=== PATIENT | male | born 1975 | race Caucasian/White ===

== ENCOUNTER 2022-03-07 12:08 | Day surgery (SDC) | payer OTHER ==
[~2022-03-07 12:08] MED LIST: LACTATED RINGERS 1,000 ML IV SCH; LIDOCAINE 1% (10MG/ML) FOR IV START INTRADERMA PRN
[2022-03-07 12:56] VITALS: TEMP 98.5
[2022-03-07] MEDS ORDERED: PROPOFOL 10 MG/ML 20 ML VIAL IV ONE (14:45)
--- NOTE | 2022-03-07 14:47 | P.GSHP ---
History of Present Illness H&P Date: 03/07/22 Chief Complaint: Rectal bleeding This a 46-year-old male with history of rectal bleeding. Patient rents today for colonoscopy. Past Medical History Additional Past Medical History / Comment(s): intermittent rectal bleeding with ? hemoroids for the last 3 years, had wisdom teeth pulled as well as 1 in the upper front. Never have had anesthetic. had sciatica 3 yrs History of Any Multi-Drug Resistant Organisms: None Reported Past Surgical History: No Surgical Hx Reported Past Psychological History: No Psychological Hx Reported Smoking Status: Current every day smoker Past Alcohol Use History: Occasional Additional Past Alcohol Use History / Comment(s): uses it on the weekends- 6 pk a weekend Past Drug Use History: Marijuana Additional Drug Use History / Comment(s): smokes weed every day-a gram a day - Past Family History Father Family Medical History: Cancer Additional Family Medical History / Comment(s): dad is currently being treated for colon cancer (pt thinks) Mother Additional Family Medical History / Comment(s): mom has a leaky heart valve Medications and Allergies Home Medications Medication Instructions Recorded Confirmed Type No Known Home Medications 03/07/22 03/07/22 History Allergies Allergy/AdvReac Type Severity Reaction Status Date / Time No Known Allergies Allergy Verified 03/07/22 12:38 Surgical - Exam Vital Signs Temp Pulse Resp BP Pulse Ox 98.5 F 78 16 141/81 99 03/07/22 12:54 03/07/22 12:54 03/07/22 12:54 03/07/22 12:54 03/07/22 12:54 - General well developed, well nourished, no distress - Eyes PERRL - ENT normal pinna - Neck no masses - Respiratory normal expansion - Cardiovascular Rhythm: regular - Abdomen Abdomen: soft, non tender Assessment and Plan Assessment: History of rectal bleeding. We'll perform colonoscopy.
--- NOTE | 2022-03-07 15:03 | P.OP ---
Date of Procedure: 03/07/22 Preoperative Diagnosis: Rectal bleeding Postoperative Diagnosis: Diverticulosis Internal and external hemorrhoids Procedure(s) Performed: Colonoscopy Anesthesia: MAC Surgeon: Etienne Pacheco Pathology: none sent Condition: stable Disposition: PACU Description of Procedure: The patient's placed on the endoscopy table in the lateral position. He received IV sedation. Digital rectal exam was performed. This revealed internal and external hemorrhoids. The flexible colonoscope was then placed patient anus and passed throughout the entire colon. The ileocecal valve was visually is. The cecum, ascending and transverse colon appeared normal. In the descending and sigmoid colon there is mild diverticulosis. The scope was then brought back the rectum and this appeared normal. Scope withdrawn through the anus and internal and external hemorrhoids are noted. Scope withdrawn for patient. There is no evidence of any rectal bleeding. His presumed patient may have bleeding from hemorrhoids.
[2022-03-07 15:30] VITALS: BP 143/89; PULSE 62; RESP 16
== END 2022-03-07 15:42 | disposition home or self-care (01) ==
LOC: ORWHC2ENDO 12:08
PROVIDERS: ATTEND Surgery
DX: K57.30 Diverticulosis of large intestine without perforation or abscess without bleeding (principal); K64.8 Other hemorrhoids; K64.4 Residual hemorrhoidal skin tags; Z80.0 Family history of malignant neoplasm of digestive organs; Z82.49 Family history of ischemic heart disease and other diseases of the circulatory system
CPT/HCPCS: 45378; J2704

== ENCOUNTER 2022-03-28 07:12 | Day surgery (SDC) | payer OTHER ==
[~2022-03-28 07:12] MED LIST changes: +ACETAMINOPHEN TAB 500 MG TAB PO PRN; +HEPARIN SODIUM,PORCINE/PF 5,000 UNIT/0.5 ML SYRINGE SQ PRN; -LACTATED RINGERS 1,000 ML IV SCH; -LIDOCAINE 1% (10MG/ML) FOR IV START INTRADERMA PRN; +Pre Op ABX Message 1 EACH MISC MISCELLANE ONE
[2022-03-28] MEDS ORDERED: ONDANSETRON 4 MG/2 ML VIAL IVP ONE (07:28)
[2022-03-28] MEDS ORDERED: LACTATED RINGERS 1,000 ML IV SCH (07:28)
[2022-03-28] MEDS ORDERED: HYDROmorphone 0.5 MG/0.5 ML SYRINGE IVP PRN (07:28)
[2022-03-28] MEDS ORDERED: DEXAMETHASONE SOD PHOSPHATE 4 MG/ML 1 ML VIAL IV ONE (07:28)
[2022-03-28] MEDS ORDERED: MIDAZOLAM 2 MG/2 ML VIAL IVP ONE (08:14)
--- NOTE | 2022-03-28 08:33 | P.GSHP ---
History of Present Illness H&P Date: 03/28/22 Chief Complaint: Internal and external hemorrhoids This 46-year-old male who presents today for hemorrhoidectomy. Patient's clearance of pain and bleeding and itching from hemorrhoids. Past Medical History Additional Past Medical History / Comment(s): intermittent rectal bleeding with ? hemoroids for the last 3 years, had wisdom teeth pulled as well as 1 in the upper front. Never have had anesthetic. had sciatica 3 yrs History of Any Multi-Drug Resistant Organisms: None Reported Past Surgical History: No Surgical Hx Reported Past Psychological History: No Psychological Hx Reported Smoking Status: Current every day smoker Past Alcohol Use History: Occasional Additional Past Alcohol Use History / Comment(s): uses it on the weekends- 6 pk a weekend Past Drug Use History: Marijuana Additional Drug Use History / Comment(s): smokes weed every day-a gram a day - Past Family History Father Family Medical History: Cancer Additional Family Medical History / Comment(s): dad is currently being treated for colon cancer (pt thinks) Mother Additional Family Medical History / Comment(s): mom has a leaky heart valve Medications and Allergies Home Medications Medication Instructions Recorded Confirmed Type No Known Home Medications 03/07/22 03/28/22 History Allergies Allergy/AdvReac Type Severity Reaction Status Date / Time No Known Allergies Allergy Verified 03/28/22 07:36 Surgical - Exam Vital Signs Temp Pulse Resp BP Pulse Ox 97.3 F L 75 18 140/89 100 03/28/22 07:35 03/28/22 07:35 03/28/22 07:35 03/28/22 07:35 03/28/22 07:35 - General well developed, well nourished, no distress - Eyes PERRL - ENT normal pinna - Neck no masses - Respiratory normal expansion - Cardiovascular Rhythm: regular - Abdomen Abdomen: soft, non tender - Rectum Internal and external hemorrhoids Assessment and Plan Assessment: Internal and external hemorrhoids. We'll perform hemorrhoidectomy.
[2022-03-28] MEDS ORDERED: BUPIVACAIN-EPI 0.25%-1:200,000 30 ML VIAL SQ ONE ×3 (08:40→09:25)
[2022-03-28] MEDS ORDERED: MIDAZOLAM 2 MG/2 ML VIAL ONE (08:48)
[2022-03-28] MEDS ORDERED: ceFAZolin 1,000 MG VIAL ONE (08:48)
[2022-03-28] MEDS ORDERED: KETOROLAC 15 MG/ML 1 ML VIAL ONE (08:48)
[2022-03-28] MEDS ORDERED: fentaNYL (PF) 50 MCG/ML 2 ML AMP ONE (08:48)
[2022-03-28] MEDS ORDERED: SUCCINYLCHOLINE CHLORIDE 200 MG/10 ML VIAL IV ONE (08:48)
[2022-03-28] MEDS ORDERED: PROPOFOL 10 MG/ML 20 ML VIAL IV ONE (08:48)
[2022-03-28] MEDS ORDERED: SODIUM CHLORIDE 0.9% 50 ML with ceFAZolin 1,000 MG IV ONE ×2 (09:15)
[2022-03-28] MEDS ORDERED: GELATIN SPONGE,ABSORB (LARGE) 1 EACH SPONGE TOPICAL ONE (09:20)
--- NOTE | 2022-03-28 09:33 | P.OP ---
Date of Procedure: 03/28/22 Preoperative Diagnosis: Internal and external hemorrhoids Postoperative Diagnosis: Internal and external hemorrhoids Procedure(s) Performed: Internal and external hemorrhoidectomy Anesthesia: OSMEL Surgeon: Etienne Pacheco Estimated Blood Loss (ml): 5 Pathology: other (Hemorrhoids) Condition: stable Disposition: PACU Description of Procedure: The patient's placed on the operative table in the supine position. He received general endotracheal tube anesthesia. He was then placed in the prone jackknife position. His anus was prepped in the sterile fashion. The patient extensive internal and external hemorrhoids. The anal retractors placed anus. In the left lateral hemorrhoidal column was grasped. This was grasped with a pair of Allis clamps. Then using Harmonic scissors the hemorrhoidectomy is performed. Next the right anterior and right posterior hemorrhoidal column were excised in identical fashion. The is suspected for hemostasis. There is no bleeding seen. The Gelfoam was placed and anus. The anus was injected with 1% local Xylocaine. Patient top she will sent to recovery room in stable condition.
[2022-03-28 09:39] VITALS: TEMP 97.1
[2022-03-28 10:03] VITALS: RESP 16
[2022-03-28 10:30] VITALS: BP 123/76; PULSE 69
== END 2022-03-28 10:52 | disposition home or self-care (01) ==
LOC: OR 07:12
PROVIDERS: ATTEND Surgery
DX: K64.4 Residual hemorrhoidal skin tags (principal); K64.8 Other hemorrhoids; F10.99 Alcohol use, unspecified with unspecified alcohol-induced disorder; F17.210 Nicotine dependence, cigarettes, uncomplicated; F12.90 Cannabis use, unspecified, uncomplicated; Z80.0 Family history of malignant neoplasm of digestive organs; Z82.49 Family history of ischemic heart disease and other diseases of the circulatory system
CPT/HCPCS: 46260; 88304; J2250; J0330; J1100; J2405; J0690; J3010; J1885; J2704; J1644